=== PATIENT | male | born 1940 | race Caucasian/White ===

== ENCOUNTER 2022-09-27 18:16 | Emergency (ER) | payer MEDICARE ==
[~2022-09-27] VITALS: Ht 165.1 cm; Wt 74.8 kg
[2022-09-27 18:20] VITALS: BP_SYST 178
--- NOTE | 2022-09-27 18:25 | NUR ---
BROUGHT IN BY [place] [id number] AND [facility], PLACED IN HALLWAY AND AWAITING ER BED.
[2022-09-27 19:21] LABS: BASOPHILS % (AUTO) 0.4 % (0.0-2.0); EOSINOPHILS # (AUTO) 0.1 K/uL (0.0-0.4); EOSINOPHILS % (AUTO) 1.4 % (0.0-4.0); HEMATOCRIT 39.7 % (36-54); LYMPHOCYTES # (AUTO) 1.3 K/uL (1.0-5.5); LYMPHOCYTES % (AUTO) 28.8 % (20.5-51.5); MEAN CORPUSCULAR HEMOGLOBIN 31 pg (27-31); MEAN CORPUSCULAR HGB CONC 35 % (32-36); MEAN CORPUSCULAR VOLUME 88 fL (79.0-98.0); MONOCYTES # (AUTO) 0.4 K/uL (0.0-1.0); MONOCYTES % (AUTO) 8.9 % (1.7-9.3); NEUTROPHILS # (AUTO) 2.7 K/uL (1.8-7.7); NEUTROPHILS % (AUTO) 60.5 % (40.0-70.0); PLATELET COUNT (AUTO) 195 K/uL (130-430); RED BLOOD CELL COUNT(AUTO) 4.49 MIL/uL (4.2-6.2); RED CELL DISTRIBUTION WIDTH 13.2 % (9.0-15.0); WHITE BLOOD COUNT (AUTO) 4.5 K/uL (4.8-10.8)
[2022-09-27 19:32] LABS: ANION GAP 13 (5-15); CHLORIDE 101 mmol/L (98-107); CREATININE 1.32 mg/dL (0.55-1.30); GLUCOSE 128 mg/dL (70-99); UREA NITROGEN, BLOOD 17 mg/dL (8-21)
[2022-09-27 19:39] LABS: ALANINE AMINOTRANSFERASE 21 U/L (12-78); ALBUMIN 4.3 g/dL (3.4-4.8); ASPARTATE AMINOTRANSFERASE 13 U/L (10-37); TOTAL BILIRUBIN 0.6 mg/dL (0.0-1.0)
--- NOTE | 2022-09-27 20:08 | NUR ---
Received pt up in bed in no acute distress. Denies any CP/SOB at this time. VSS. Fam at bedside.
--- NOTE | 2022-09-27 20:10 | NUR ---
MD Orlando at bedside examining pt.
--- NOTE | 2022-09-27 20:11 | NUR ---
Received pt with 18 G to L AC inserted by FIRE en route. Flushed with NS; Patent. No s/sx of infiltration noted.
[2022-09-27] MEDS ORDERED: iohexoL 350 mgI/mL, 100 ML INFUS..BTL IV ONE (20:20)
[2022-09-27] MEDS ORDERED: NACL 0.9% 1,000 ML IV ONE (20:30)
--- NOTE | 2022-09-27 22:05 | NUR ---
Patient given written and verbal discharge instructions and verbalizes understanding. ER MD Orlando discussed with patient the results and treatment provided. Patient in stable condition. ID arm band removed. IV catheter removed intact and dressing applied, no active bleeding. Patient educated on pain management and to follow up with PMD. Opportunity for questions provided and answered.
[2022-09-27 22:32] VITALS: BP_SYST 159
== END 2022-09-27 22:05 | disposition home or self-care (01) ==
LOC: SED 18:16
DX: R07.89 Other chest pain (principal); I10 Essential (primary) hypertension; Z79.899 Other long term (current) drug therapy
CPT/HCPCS: 99285; 96360; 71275; 71045; 80053; 85025; 85379; 84484; 36415; 93005; 76376; Q9967; J7030